=== PATIENT | female | born 1930 | race Caucasian/White ===

== ENCOUNTER 2017-01-07 11:07 | Emergency (ER) | payer MEDICARE ==
[~2017-01-07] VITALS: Ht 162.6 cm; Wt 78.0 kg
[2017-01-07] MEDS ORDERED: METH-107 PO (11:34)
[2017-01-07] MEDS ORDERED: IBUP600T26 PO (11:34)
[2017-01-07] MEDS ORDERED: METF500T PO (11:34)
[2017-01-07] MEDS ORDERED: ACETAMINOPHEN TAB 650MG DOSE (2X325MG) PO ONE (12:45)
[2017-01-07 13:40] LABS: BASO % 0.4 % (0.0-1.0); EOS # 0.1 K/mm3 (0.0-0.50); EOS % 1.8 % (0.0-3.0); LARGE UNSTAINED CELL # 0.2 K/mm3 (0.0-0.4); LARGE UNSTAINED CELL % 3.2 % (0.0-4.0); LYMPH # 2.3 K/mm3 (1.5-4.5); LYMPH % 27.2 % (24.0-44.0); MEAN CORPUSCULAR HEMOGLOBIN 30.5 pg (27.0-33.0); MEAN CORPUSCULAR HGB CONC 32.8 g/dl (32.0-36.5); MONO # 0.6 K/mm3 (0.0-0.8); MONO % 7.8 % (0.0-5.0); NEUTROPHILS # 4.4 K/mm3 (1.8-7.7); NEUTROPHILS % 59.7 % (36.0-66.0); PLATELET COUNT, AUTOMATED 181 k/mm3 (150-450); RED CELL DISTRIBUTION WIDTH 13.5 % (11.5-14.5); WHITE BLOOD COUNT 7.4 K/mm3 (4.0-10.0)
[2017-01-07 14:08] LABS: ALBUMIN 3.9 GM/DL (3.2-5.2); ALBUMIN/GLOBULIN RATIO 1.05 (1.00-1.93); ALKALINE PHOSPHATASE 63 U/L (45-117); ALT/SGPT 26 U/L (12-78); ANION GAP 7 MEQ/L (8-16); AST/SGOT 15 U/L (15-37); BILIRUBIN,TOTAL 0.4 MG/DL (0.2-1.0); BLOOD UREA NITROGEN 10 MG/DL (7-18); CARBON DIOXIDE LEVEL 33 MEQ/L (21-32); CHLORIDE LEVEL 97 MEQ/L (98-107); CREATININE FOR GFR 0.74 MG/DL (0.55-1.02); GLOMERULAR FILTRATION RATE > 60.0 (>32); GLUCOSE, FASTING 115 MG/DL (83-110); POTASSIUM SERUM 3.8 MEQ/L (3.5-5.1); SODIUM LEVEL 137 MEQ/L (136-145); TOTAL PROTEIN 7.6 GM/DL (6.4-8.2)
[2017-01-07] MEDS ORDERED: TYLE325C PO (14:38)
--- NOTE | 2017-01-07 14:49 | REP ---
LUMBAR SPINE COMPLETE: 01/07/2017. No prior study. Clinical history: Back pain in an 86-year-old. Findings: Five views are provided. The AP view shows pedicles, spinous and transverse processes intact. The right upper quadrant clips from prior cholecystectomy noted. Marginal osteophytes are seen throughout the lumbar and lower thoracic spine. Disc space slightly narrowed at L5-S1. Other levels intact. No compression deformity or destructive lesion. There is atherosclerotic calcification throughout the aorta and branches without aneurysm. Facet arthritis greatest at L4-5 and L5-S1. No spondylolysis or spondylolisthesis. SI joints symmetric. Hip joint space is narrowed with osteoarthritic change and chondromalacia. There are also some degenerative changes in the symphysis pubis but the SI joints were normal. Impression: 1. 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 2. No compression deformity or destructive lesion. 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 Degenerative changes at the symphysis pubis with the SI joints intact. 3. No spondylolysis or spondylolisthesis. Signed by Juan Ureña MD 01/07/2017 07:34 P
[2017-01-07 14:50] VITALS: BP 176/81
== END 2017-01-07 14:51 | disposition home or self-care (01) ==
LOC: M ED 11:53
DX: M19.90 Unspecified osteoarthritis, unspecified site (principal); Z88.7 Allergy status to serum and vaccine; Z88.0 Allergy status to penicillin; Z88.2 Allergy status to sulfonamides; Z79.899 Other long term (current) drug therapy; Z79.84 Long term (current) use of oral hypoglycemic drugs; Z79.1 Long term (current) use of non-steroidal anti-inflammatories (NSAID); E78.00 Pure hypercholesterolemia, unspecified; E11.9 Type 2 diabetes mellitus without complications